=== PATIENT | female | born 1950 ===

== ENCOUNTER 2022-08-21 06:10 | Day surgery (SDC) | payer OTHER ==
[~2022-08-21 06:10] MED LIST: ATORVASTATIN CA20 MG PO; GLUMETZA500 MG PO; PROAIR RESPICL90 MCG IH; SYNTHROID100 MCG PO
[2022-08-21] MEDS ORDERED: MACROBID 100 M100 MG PO (11:21)
[2022-08-21] MEDS ORDERED: TRAM1TAB98 PO (11:21)
== END 2022-08-21 14:30 | disposition home or self-care (01) ==
LOC: CIR.AMB 06:10
PROVIDERS: ATTEND Obstetrics & Gynecology Gynecology
DX: N81.11 Cystocele, midline (principal); N81.12 Cystocele, lateral; N89.4 Leukoplakia of vagina; R23.4 Changes in skin texture; Z91.013 Allergy to seafood; E11.9 Type 2 diabetes mellitus without complications; E03.9 Hypothyroidism, unspecified; Z79.84 Long term (current) use of oral hypoglycemic drugs